=== PATIENT | female | born 1990 | race Caucasian/White ===

== ENCOUNTER 2018-12-08 16:15 | Emergency (ER) | payer OTHER ==
--- NOTE | 2018-12-08 16:47 | ER Document Report ---
ED Medical Screen (RME) - General Chief Complaint: Numbness Stated Complaint: HEADACHE Time Seen by Provider: 12/08/18 16:44 Mode of Arrival: Ambulatory Information source: Patient Notes: 28-year-old female presented to ED for burning and tingling to the neck and head. She states this started about an hour before coming to the emergency room. She said she was sick with a fever over the weekend. She states she has had a headache for about an hour. States only medical history is insomnia. 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 Patient is alert oriented respirations regular and unlabored speaking in full sentences. Patient has full range of motion to her neck. She can bring both knees to her chest. Lungs are clear to auscultation. There is no redness or drainage noted in the throat. I have greeted and performed a rapid initial assessment of this patient. A comprehensive ED assessment and evaluation of the patient, analysis of test results and completion of medical decision making process will be conducted by an additional ED providers. Dictation of this chart was performed using voice recognition software; therefore, there may be some unintended grammatical errors. TRAVEL OUTSIDE OF THE [place] IN LAST 30 DAYS: No - Related Data Allergies/Adverse Reactions: No Known Allergies Allergy (Unverified 12/08/18 16:30) Physical Exam - Vital signs Vitals: Temp Pulse Resp BP Pulse Ox 98.4 F 109 H 12 164/86 H 100 12/08/18 16:34 12/08/18 16:34 12/08/18 16:34 12/08/18 16:34 12/08/18 16:34 Course - Vital Signs Vital signs: Temp Pulse Resp BP Pulse Ox 98.4 F 109 H 12 164/86 H 100 12/08/18 16:34 12/08/18 16:34 12/08/18 16:34 12/08/18 16:34 12/08/18 16:34
[2018-12-08 17:24] LABS: ABSOLUTE EOSINOPHILS # (AUTO) 0.2 10^3/uL (0.0-0.6); ABSOLUTE LYMPHOCYTES (AUTO) 1.8 10^3/uL (0.5-4.7); ABSOLUTE MONOCYTES (AUTO) 0.7 10^3/uL (0.1-1.4); ABSOLUTE NEUT (AUTO) 5.7 10^3/uL (1.7-8.2); BASOPHILS % (AUTO) 0.3 % (0-2); HEMATOCRIT 36.7 % (36.0-47.0); HEMOGLOBIN 12.7 g/dL (12.0-15.5); LYMPHOCYTES % (AUTO) 21.2 % (13-45); MEAN CORPUSCULAR HEMOGLOBIN 28.3 pg (27.0-33.4); MEAN CORPUSCULAR HGB CONC 34.6 g/dL (32.0-36.0); MEAN CORPUSCULAR VOLUME 82 fl (80-97); MONOCYTES % (AUTO) 7.8 % (3-13); PLATELET COUNT 367 10^3/uL (150-450); RED BLOOD COUNT 4.48 10^6/uL (3.72-5.28); SEGMENTED NEUTROPHILS % (AUTO) 68.7 % (42-78); TOTAL CELLS COUNTED % (AUTO) 100 %; WHITE BLOOD COUNT 8.4 10^3/uL (4.0-10.5)
[2018-12-08 17:30] LABS: APPEARANCE,URINE CLEAR; BILIRUBIN,URINE NEGATIVE (NEGATIVE); COLOR,URINE YELLOW; GLUCOSE, URINE NEGATIVE (NEGATIVE); KETONES,URINE NEGATIVE (NEGATIVE); LEUKOCYTE ESTERASE,URINE NEGATIVE (NEGATIVE); NITRITE,URINE NEGATIVE (NEGATIVE); PROTEIN,URINE 30 mg/dL (NEGATIVE); UROBILINOGEN,URINE NEGATIVE mg/dL (<2.0)
[2018-12-08 17:35] LABS: URINE SPECIFIC GRAVITY 1.022
[2018-12-08 17:42] LABS: ALANINE AMINOTRANSFERASE 37 U/L (9-52); ALBUMIN 4.7 g/dL (3.5-5.0); ALKALINE PHOSPHATASE 78 U/L (38-126); ANION GAP 12 (5-19); ASPARTATE AMINO TRANSFERASE 30 U/L (14-36); BILIRUBIN,DIRECT 0.2 mg/dL (0.0-0.4); BILIRUBIN,TOTAL 0.2 mg/dL (0.2-1.3); BLOOD UREA NITROGEN 12 mg/dL (7-20); CALCIUM 9.4 mg/dL (8.4-10.2); CARBON DIOXIDE 25 mmol/L (22-30); CHLORIDE 104 mmol/L (98-107); GLUCOSE 118 mg/dL (75-110); POTASSIUM 3.9 mmol/L (3.6-5.0); SODIUM 141.3 mmol/L (137-145); TOTAL PROTEIN 7.8 g/dL (6.3-8.2)
--- NOTE | 2018-12-08 18:20 | ER Document Report ---
ED General - General Chief Complaint: Numbness Stated Complaint: HEADACHE Time Seen by Provider: 12/08/18 16:44 Mode of Arrival: Ambulatory TRAVEL OUTSIDE OF THE [place] 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 States that she started to feel badly over 04 of December. States she had a fever of 101, neck pain, headache, body aches, nausea. States that she went and saw her PCM on Saturday the . She was tested for strep and flu, both of which were negative. States that she had felt somewhat better since then. However today she got worse while at work. States she began to feel a cold, tingling sensation up her neck and around her head. States that medics were called and she was transported here. Her sugar with medics was 68 and she was given 15 gm of glucose. States that despite this, she has been having her "headache". Denies persistent fevers. She denies photophobia, phonophobia, NV. Denies sudden onset with thunderclap pain. States that she has been outside, but she is unsure if she has been bitten by a tick. Does admit to a history of Lymes several years ago. - Related Data Allergies/Adverse Reactions: No Known Allergies Allergy (Unverified 12/08/18 16:30) Past Medical History - General Information source: Patient - Social History Smoking Status: Never Smoker Frequency of alcohol use: None Drug Abuse: None Lives with: Spouse/Significant other Family History: Reviewed & Not Pertinent Patient has suicidal ideation: No Patient has homicidal ideation: No Renal/ Medical History: Denies: Hx Peritoneal Dialysis Review of Systems - Review of Systems Constitutional: Chills, Fever, Malaise EENT: denies: Ear pain, Throat pain, Throat swelling Cardiovascular: denies: Chest pain, Syncope, Dizziness, Lightheaded Respiratory: denies: Cough, Short of breath Gastrointestinal: denies: Abdominal pain, Diarrhea, Nausea, Vomiting Genitourinary: No symptoms reported Musculoskeletal: Neck pain Skin: denies: Rash Neurological/Psychological: Headaches -: Yes All other systems reviewed and negative Physical Exam - Vital signs Vitals: Temp Pulse Resp BP Pulse Ox 98.4 F 109 H 12 164/86 H 100 12/08/18 16:34 07/08/19 16:34 12/08/18 16:34 12/08/18 16:34 12/08/18 16:34 Interpretation: Normal - General General appearance: Appears well, Alert In distress: None - HEENT Head: Normocephalic, Atraumatic Eyes: Normal Pupils: PERRL Ears: Normal External canal: Normal Tympanic membrane: Normal Sinus: Normal Nasal: Normal Mouth/Lips: Normal Mucous membranes: Normal Pharynx: Normal. No: Erythema, Exudate Neck: Other - No TTP over the neck musculature. No meningeal signs. No: Anterior cervical chain, Posterior cervical chain, Brudzinski, Kernig's, Mening ismus, Thyromegally - Respiratory Respiratory status: No respiratory distress Chest status: Nontender Breath sounds: Normal Chest palpation: Normal - Cardiovascular Rhythm: Regular Heart sounds: Normal auscultation Murmur: No - Abdominal Inspection: Normal Distension: No distension Bowel sounds: Normal Tenderness: Nontender Organomegaly: No organomegaly - Back Back: Normal, Nontender - Extremities General upper extremity: Normal inspection, Nontender, Normal color, Normal ROM, Normal temperature General lower extremity: Normal inspection, Nontender, Normal color, Normal ROM, Normal temperature, Normal weight bearing. No: Jignesh's sign - Neurological Neuro grossly intact: Yes Cognition: Normal Orientation: AAOx4 María Coma Scale Eye Opening: Spontaneous María Coma Scale Verbal: Oriented Bartley Coma Scale Motor: Obeys Commands María Coma Scale Total: 15 Speech: Normal Cranial nerves: Normal. 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 No: Pronator drift, Weakness, Hemiplegia Sensory: Normal - Psychological Associated symptoms: Normal affect, Normal mood - Skin Skin Temperature: Warm Skin Moisture: Dry Skin Color: Normal Course - Vital Signs Vital signs: Temp Pulse Resp BP Pulse Ox 97.9 F 78 16 131/90 H 99 12/08/18 20:20 12/08/18 20:18 12/08/18 20:18 12/08/18 20:18 12/08/18 20:18 - Laboratory Result Diagrams: 12/08/18 17:05 12/08/18 17:05 Laboratory results interpreted by me: 12/08/18 12/08/18 17:05 17:05 Glucose 118 H Urine Protein 30 H - Transfer of Care Notes: 12/08/18: Impression: Headache, body aches, neck pain, generalized malaise. Patient has no focal neurological deficits, she has no meningeal signs. Today she is afebrile. Her labs are reassuring with no leukocytosis, no bandemia, no electrolye changes. She had a sugar with medics of 68 but repeat sugar on labs is WNL at 118. She has a mild headache and would like some Tylenol. She has a remote history of lymes disease and her story could be indicative of a tick borne pathogen. Will check titers, empirically start Doxycycline. Doubt SAH as this headache is not thunderclap in nature, came on gradually. There is no f amily history of SAH. Doubt meningitis picture as patient would appear far more toxic than she does and since her last fever was this past on December 04, she would have gotten progressively worse. She and her agree with the plan. Will have her follow closely with PCP in the next 1-2 days. Return here if worsening pain, chest pain, intractable NV, focal neuro deficits. Discharge - Discharge Clinical Impression: Headache, Generalized body aches Condition: Stable Disposition: HOME, SELF-CARE Instructions: Headache ([facility]) Additional Instructions: PUSH FLUIDS, REST AT HOME. START DOXYCYCLINE WHILE AWAITING [facility] PATHOGEN TITERS. RETURN IF WORSE. FOLLOW UP WITH PRIMARY CARE IN 1-2 DAYS Prescriptions: Doxycycline Hyclate 100 mg PO BID #20 capsule Forms: Return to Work
[2018-12-08] MEDS ORDERED: ACETAMINOPHEN 325 MG TABLET PO ONE (19:45)
[2018-12-08 20:20] VITALS: BP 131/90
[2018-12-11 07:19] LABS: LYME DISEASE IGM AB <0.80 index (0.00-0.79)
== END 2018-12-08 20:25 | disposition home or self-care (01) ==
LOC: ER 16:15
DX: R51 Headache (principal); M54.2 Cervicalgia; R53.81 Other malaise; R20.2 Paresthesia of skin
CPT/HCPCS: 36415; 80053; 81001; 84703; 85025; 86617; 86618; 86757; 99284